=== PATIENT | female | born 1990 | race Caucasian/White ===

== ENCOUNTER 2016-12-05 02:04 | Emergency (ER) | payer BC, OTHER ==
[~2016-12-05] VITALS: Ht 170.2 cm; Wt 62.4 kg
[2016-12-05 02:06] VITALS: TEMP 37.4; Ht 170.2 cm; Wt 62.4 kg
[2016-12-05] MEDS ORDERED: DEXAMETHASONE SOD INJ 4 MG/ML VIAL IV STA (02:19)
[2016-12-05] MEDS ORDERED: SODIUM CHLORIDE 0.9% 1000ML 1,000 ML IV STA (02:19)
[2016-12-05] MEDS ORDERED: KETOROLAC TROMETHAMINE 30 MG/ML VIAL IV STA (02:19)
[2016-12-05] MEDS ORDERED: AMPICILLIN/SULBACTAM SOD INJ 3,000 MG in SODIUM CHLORIDE 0.9% 100ML 100 ML IV ONE (02:30)
[2016-12-05] MEDS ORDERED: SERT1TAB71 PO (02:43)
[2016-12-05 02:49] LABS: HEMATOCRIT 38.3 % (37-47); MEAN CELL VOLUME 87.2 fL (80-100); MEAN CORPUSCULAR HEMOGLOBIN 29.2 pg (25-34); MEAN CORPUSCULAR HGB CONC 33.4 g/dl (32-36); PLATELET COUNT 214 K/uL (130-400); RED BLOOD COUNT 4.39 M/uL (4.2-5.4); WHITE BLOOD COUNT 12.33 K/uL (4.8-10.8)
[2016-12-05 03:05] LABS: BUN/CREATININE RATIO 8.2 (10-20); CALCIUM 8.8 mg/dl (8.5-10.1); CREATININE 0.7 mg/dl (0.60-1.20); POTASSIUM 3.7 mmol/L (3.5-5.1)
[2016-12-05 03:42] LABS: COMPLETE YES; LYMPH ABS # 2.81 K/uL (1.2-3.4); LYMPHOCYTE % 22.8 %; NEUTROPHILS % 31.6 %; VARIANT LYM ABS # 5.08 K/uL; VARIANT LYMPHOCYTE % 41.2 %
--- NOTE | 2016-12-05 03:47 | EMERGENCY ROOM VISIT NOTE ---
History First contact with patient: 02:13 Chief Complaint: SORETHROAT Stated Complaint: THROAT SWOLLEN,PUSS ON TONSILS,FEVER,CONGESTION History of Present Illness The patient is a 26 year old female who presents to the Emergency Room with complaints of sore throat and difficulty swallowing. The patient states that she has had a sore throat for the past 5 days. She was initially seen by urgent care 3 days ago and told that her symptoms are likely viral. She was then seen again and prescribed amoxicillin and a steroid. She reports pain and swelling in the throat as well as swollen glands in the throat. She has had a fever. She rates her current discomfort an 8/10. She states that her throat feels very swollen and it is making it difficult to breathe and swallow. She denies any cough, neck stiffness, headache, chest pain or shortness of breath. Review of Systems A complete 10 point review of systems was reviewed with the patient with pertinent positives and negatives as per history of present illness. All else were negative. Social History Smoking Status: Never Smoker Current/Historical Medications Scheduled Sertraline Hcl (Zoloft), 25 MG PO DAILY Physical Exam Vital Signs Date Time Temp Pulse Resp B/P (MAP) Pulse Ox O2 Delivery O2 Flow Rate FiO2 12/05/16 03:59 95 18 105/55 97 12/05/16 02:29 Room Air 96 12/05/16 02:06 37.4 112 18 118/68 96 Room Air Physical Exam VITALS: Vitals are noted on the nurse's note and reviewed by myself. Vital signs stable. GENERAL: This is a 26-year-old female, in no acute distress, nondiaphoretic, well-developed well-nourished. SKIN: The skin was without rashes. EARS: External auditory canals clear, tympanic membranes pearly zaldivar without erythema or effusion bilaterally. EYES: Pupils equal round and reactive to light and accommodation. Conjunctivae without injection, sclerae without icterus. NOSE: Patent, turbinates without inflammation or discharge. MOUTH: Mucous membranes moist. Tonsils are significantly enlarged bilaterally with exudate present. Airway is patent. No evidence of peritonsillar abscess. NECK: Supple without nuchal rigidity. There is tender anterior cervical lymphadenopathy. No meningismus. HEART: Regular rate and rhythm without murmurs gallops or rubs. LUNGS: Clear to auscultation bilaterally without wheezes, rales or rhonchi. NEURO: Patient was alert and oriented to person place and time. Medical Decision & Procedures Laboratory Results 12/05/16 02:35 Red Blood Count 4.39, Mean Corpuscular Volume 87.2, Mean Corpuscular Hemoglobin 29.2, Mean Corpuscular Hemoglobin Concent 33.4, Mean Platelet Volume 9.0 12/05/16 02:35 Test 12/05/16 02:35 White Blood Count 12.33 K/uL (4.8-10.8) Red Blood Count 4.39 M/uL (4.2-5.4) Hemoglobin 12.8 g/dL (12.0-16.0) Hematocrit 38.3 % (37-47) Mean Corpuscular Volume 87.2 fL (80-100) Mean Corpuscular Hemoglobin 29.2 pg (25-34) Mean Corpuscular Hemoglobin Concent 33.4 g/dl (32-36) Platelet Count 214 K/uL (130-400) Mean Platelet Volume 9.0 fL (7.4-10.4) RDW Standard Deviation 43.7 fL (36.4-46.3) RDW Coefficient of Variation 13.7 % (11.5-14.5) Neutrophils % (Manual) 31.6 % Lymphocytes % (Manual) 22.8 % Variant Lymphocytes % (manual) 41.2 % Monocytes % (Manual) 4.4 % Neutrophils # (Manual) 3.90 K/uL (1.4-6.5) Total Absolute Neutrophils 3.90 K/uL (1.4-6.5) Lymphocytes # (Manual) 2.81 K/uL (1.2-3.4) Absolute Variant Lymphocytes 5.08 K/uL Total Absolute Lymphocytes 7.89 K/uL (1.2-3.4) Monocytes # (Manual) 0.54 K/uL (0.11-0.59) Red Blood Cell Morphology Unremarkable Anion Gap 3.0 mmol/L (3-11) Est Creatinine Clear Calc Drug Dose 116.4 ml/min Estimated GFR () 136.7 Estimated GFR (Non- 117.9 BUN/Creatinine Ratio 8.2 (10-20) Calcium Level 8.8 mg/dl (8.5-10.1) Monoscreen POS (NEG) Medications Administered Medications (Trade) Dose Ordered Sig/Kuldip Route Start Time Stop Time Status Last Admin Dose Admin Sodium Chloride 1,000 ml @ 999 mls/hr Q1H1M STAT IV 12/05/16 02:19 12/05/16 03:19 DC 12/05/16 02:53 999 MLS/HR Ampicillin Sodium/ Sulbactam Sodium 3000 mg/Sodium Chloride 108 ml @ 200 mls/hr ONE ONCE IV 12/05/16 02:30 12/05/16 03:02 DC 12/05/16 02:53 200 MLS/HR Dexamethasone Sodium Phosphate (Decadron Inj) 10 mg NOW STAT IV 12/05/16 02:19 12/05/16 02:21 DC 12/05/16 02:52 10 MG Ketorolac Tromethamine (Toradol Inj) 30 mg NOW STAT IV 12/05/16 02:19 12/05/16 02:21 DC 12/05/16 02:53 30 MG ED Course The patient was evaluated as above. Labs were drawn and IV access was obtained. Patient was medicated with 1 L normal saline solution, 10 mg Decadron, 30 mg Toradol and 3 g Unasyn. Patient was reevaluated and reported she was feeling better. She will be discharged. Discharge instructions were reviewed with the patient. The patient verbalized understanding of my assessment and treatment plan and was discharged home in good condition. Medical Decision Differential diagnosis includes strep pharyngitis, infectious mononucleosis, retropharyngeal abscess, epiglottitis, peritonsillar abscess, among others. The patient is a 26-year-old female who presents today complaining of sore throat and difficulty swallowing due to swelling of her tonsils. Labs revealed mild leukocytosis. Rapid strep was negative, however patient has fever, high density and anterior lymphadenopathy and I do feel she likely has a strep infection and should continue amoxicillin. Her Monospot was also positive and she was informed of this. She will continue her medications at home. She did have some improvement after IV steroids and antibiotics. I suspect that the patient will have some improvement throughout the day, as she has currently been on antibiotics for just under 48 hours. She was instructed to return here if she has any worsening of her current condition. Based on the patient's presentation and work up, I feel the patient is stable for outpatient treatment. The patient was educated to return to the emergency department for any worsening of their current condition or new/concerning symptoms. She will follow up with her PCP as needed. Medication Reconcilliation Current Medication List: was personally reviewed by me Blood Pressure Screening Patient's blood pressure: Normal blood pressure Impression Primary Impression: Acute pharyngitis Additional Impression: Infectious mononucleosis Departure Information Dispostion Home / Self-Care Condition GOOD Referrals No Doctor, Assigned (PCP) Patient Instructions ED Mononucleosis, My [facility] Additional Instructions You were seen in the emergency department for your sore throat. Continue the amoxicillin and prednisone as prescribed. For pain and fever control, you can use the following [id number]-uaa-[id number] medicines (if >12 yo): - Regular strength (325mg/tab) Tylenol (acetaminophen) 2 tabs every 4-6 hours as needed. Do not exceed 12 tablets in a 24 hour period. Avoid taking more than 4 grams (4000 mg) of Tylenol per day. This includes any other sources of acetaminophen you may take on a regular basis. - Regular strength (200 mg/tab) Advil (ibuprofen) 3-4 tabs every 6 hours as needed. Do not exceed a dose of 3200 mg per day. - For best results, alternate dosing of Tylenol and Advil. In addition to your prescribed medications, you can also use the following home remedies: - Warm salt-water gargles 3 times per day can soothe your throat and help to fight infection. - Warm tea with honey can soothe your throat. Return to the emergency department if your symptoms persist or worsen over the next 2-3 days despite treatment course outlined above. Return to the emergency department if you develop the following symptoms of: inability to swallow solids , liquids, or drool; excessive wheezing or inability to catch your breath; or intractable fever or pain. Follow up with your primary care provider in 2-3 days from today's emergency department visit. Problem Qualifiers Primary Impression: Acute pharyngitis
[2016-12-05 03:59] VITALS: BP 105/55; PULSE 95; O2SAT 97
== END 2016-12-05 04:00 | disposition home or self-care (01) ==
LOC: C.EDB 02:06
DX: J02.9 Acute pharyngitis, unspecified (principal); B27.90 Infectious mononucleosis, unspecified without complication

== ENCOUNTER → 2017-02-10 | Outpatient (CLI) | payer BC ==
[~2017-02-10] MED LIST: SERT1TAB71 PO
--- NOTE | 2017-02-10 08:11 | DIAGNOSTIC IMAGING REPORT ---
CT OF THE SINUSES WITHOUT CONTRAST FUSION PROTOCOL CLINICAL HISTORY: Recurrent acute and chronic sinusitis. COMPARISON STUDY: No previous studies for comparison. TECHNIQUE: Axial images of the sinuses were obtained without IV contrast according to Fusion protocol. Coronal reformats were viewed. FINDINGS: Visualized portions of the intracranial contents are unremarkable on this unenhanced exam. There is no fluid within the mastoid air cells. Orbits are unremarkable. A 1.6 cm hypodensity within the inferior right maxillary sinus is noted. The major drainage pathways are patent. There is mild mucosal thickening of the ethmoid sinuses. No bony destruction is present. Cribriform plate is intact. There is minimal S-shaped deviation of the nasal septum. Orbits are unremarkable. IMPRESSION: 1. 1.6 cm hypodensity within the right maxillary sinus which likely reflects a mucous retention cyst. A polyp could appear similar. 2. Minimal mucosal thickening of the ethmoid sinuses. No CT evidence of acute sinusitis. 3. Patent major drainage pathways. Electronically signed by: Warren Lloyd M.D. 02/10/2017 8:10 AM Dictated Date/Time: 02/10/2017 7:55 AM
== END | disposition home or self-care (01) ==
LOC: C.CTS 07:33
DX: J32.9 Chronic sinusitis, unspecified (principal); J34.9 Unspecified disorder of nose and nasal sinuses

== ENCOUNTER → 2017-03-09 | Day surgery (SDC) | payer BC ==
[2017-03-04 08:30] VITALS: Ht 170.2 cm; Wt 63.6 kg
[~2017-03-09] VITALS: Ht 170.2 cm; Wt 63.6 kg
[~2017-03-09] MED LIST changes: +ASCO10003 PO; +ATROPINE SULFATE 0.1 MG/ML 5ML SYR IV PRN; +BACITRACIN/POLYMYXIN B OINT 15 GM TUBE EXT ONE; +DEXAMETHASONE SOD INJ 4 MG/ML VIAL ONE; +EpHEDrine SULFATE INJ 50 MG/ML AMP IV PRN; +FENTANYL CITRATE INJ 50 MCG/1 ML 2 ML VIAL IV PRN; +FENTANYL CITRATE INJ 50 MCG/1 ML 2 ML VIAL ONE; +HYDROCODONE/APAP 2.5MG/108MG ELIX 5 ML UDP PO PRN; +LACTATED RINGER'S 1000ML 1,000 ML IV SCH; +LIDOCAINE 2% JELLY 5 ML TUBE EXT ONE; +LIDOCAINE HCL 2% 2 ML VIAL (20MG/ML) ONE; +MIDAZOLAM HCL 1 MG/ML 2ML VIAL ONE; +MISCCAP80 PO; +MULT-506 PO; +ONDANSETRON INJ 2 MG/ML 2 ML VIAL IV PRN; +ONDANSETRON INJ 2 MG/ML 2 ML VIAL ONE; +OXYMETAZOLINE HCL 0.05% NA SPR 15 ML BTL ONE; +PROPOFOL IV EMULSION 10 MG/ML 20 ML VIAL IV ONE; +SCOPOLAMINE 1.5 MG TDSY TD ONE; -SERT1TAB71 PO; +SPIR1TAB PO
--- NOTE | 2017-03-09 06:47 | History & Physical Bridge - SC ---
H&P Re-Evaluation Bridge Note: I have examined the patient, reviewed the History & Physical and in the interval since the performance of the History & Physical I have noted the following changes of clinical significance: No changes noted
--- NOTE | 2017-03-09 09:03 | [facility] Operative Report ---
Operative Report Operative Date Mar 09, 2017. Pre-Operative Diagnosis Acute Recurrent Tonsillitis; Tonsillar Hypertrophy; Adenoid Hypertrophy Post-Operative Diagnosis Same Procedure(s) Performed Tonsillectomy And Adenoidectomy Surgeon Dr. Redman Welding Tester Surgeon(s) None Estimated Blood Loss 5ML Findings 1. 3+ T&A Specimens A. Right Tonsil B. Left Tonsil I attest to the content of the Intraoperative Record and any orders documented therein. Any exceptions are noted below.
--- NOTE | 2017-03-09 09:05 | Discharge Instructions ---
Discharge Instructions Date of Service Mar 09, 2017. Admission Reason for Admission: Acute Rec Tonsillitis, Hypertrophy Tonsils, Adenoi Discharge Discharge Diagnosis / Problem: SAME Discharge Goals Goal(s): Therapeutic intervention Activity Recommendations Activity Limitations: as noted below LIGHT ACTIVITY FOR 2 WEEKS; NO DRIVING WHILE ON LORTAB . Current Hospital Diet Patient's current hospital diet: Full Liquid Diet Discharge Diet Recommended Diet: Full Liquid Diet Diet Texture: Mechanical Soft (ground) Procedures Procedures Performed: Tonsillectomy And Adenoidectomy Pending Studies Studies pending at discharge: no Medical Emergencies . Who to Call and When: Medical Emergencies: If at any time you feel your situation is an emergency, please call 911 immediately. . Non-Emergent Contact Non-Emergency issues call your: Surgeon . . "Provider Documentation" section prepared by Catracho Redman. . VTE Core Measure Inpt VTE Proph given/why not?: SCD's
--- NOTE | 2017-03-09 09:23 | OPERATIVE REPORT ---
DATE OF OPERATION: 03/09/2017 PREOPERATIVE DIAGNOSES: 1. Recurrent acute and chronic tonsillitis. 2. Tonsil and adenoid hypertrophy. POSTOPERATIVE DIAGNOSES: 1. Recurrent acute and chronic tonsillitis. 2. Tonsil and adenoid hypertrophy. PROCEDURES: Tonsillectomy and adenoidectomy. SURGEON: Catracho Redman MD ANESTHESIA: General endotracheal. ESTIMATED BLOOD LOSS: 5 mL FINDINGS: 1. Normal palate. 2. 3+ adenoids. 3. 3+ tonsils. SPECIMENS: Right and left tonsil sent separately for permanent pathological assessment. COMPLICATIONS: None. INDICATIONS FOR THE PROCEDURE: The patient is a 27-year-old female with the above-mentioned history who presents for the above-mentioned procedure on an outpatient elective basis. DESCRIPTION OF PROCEDURE: After informed consent had been obtained from the patient, the patient was wheeled to the operating room and placed on the operating table in the supine position. Monitors placed. After induction of general endotracheal anesthesia, the table was turned 90 degrees. The patient's head and neck were gently extended. Antibiotic ointment was applied to the lips and a mouth gag was carefully inserted, opened, and stabilized on a roll of towels. The palate was inspected and this was found to be normal. A catheter was then inserted into the right nasal cavity and this was used to elevate the soft palate and uvula. A laryngeal mirror was used to inspect the nasopharynx and the intraoperative findings were 3+ adenoid tissue. This was removed using suction Bovie electrocautery while achieving hemostasis simultaneously. An Allis clamp was then used to grasp the right tonsil on the superior pole and Bovie electrocautery was used to remove the tonsil in the capsular plane with care to preserve the underlying mucosa and musculature of the anterior and posterior tonsillar pillars. The left tonsil was then removed in a similar fashion. Intraoperative findings were 3+ cryptic tonsils bilaterally. These were sent separately for permanent pathological assessment. The mouth gag was then released for 1 minute. This was reopened and hemostasis was confirmed. An orogastric tube was placed and the stomach was suctioned free of air and the stomach contents. This marked the end of the case. The patient tolerated the procedure well. There were no apparent complications. The patient was extubated and transferred to the recovery room in stable condition. I attest to the content of the Intraoperative Record and any orders documented therein. Any exception s are noted below.
[2017-03-09 09:52] VITALS: TEMP 36.4
--- NOTE | 2017-03-09 10:20 | Anesthesia Progress Nt - [facility] ---
Anesthesia Post Op Note Date & Time Mar 09, 2017 at 10:20 Vital Signs Pain Intensity: 4 Vital Signs Past 12 Hours Date Time Temp Pulse Resp B/P (MAP) Pulse Ox O2 Delivery O2 Flow Rate FiO2 03/09/17 09:52 36.4 74 16 109/71 (84) 100 Room Air 03/09/17 09:48 36.7 71 16 114/71 99 Room Air 03/09/17 09:44 66 9 03/09/17 09:44 66 9 99 03/09/17 09:44 66 9 99 03/09/17 09:44 66 9 03/09/17 09:43 70 13 03/09/17 09:43 69 13 99 03/09/17 09:40 120/70 03/09/17 09:38 81 16 99 03/09/17 09:38 81 16 03/09/17 09:36 119/74 03/09/17 09:33 83 15 03/09/17 09:33 83 15 99 03/09/17 09:30 134/76 03/09/17 09:28 81 18 100 03/09/17 09:28 84 18 03/09/17 09:25 117/73 03/09/17 09:23 71 9 100 03/09/17 09:23 73 9 03/09/17 09:20 115/64 03/09/17 09:18 81 6 100 03/09/17 09:18 80 6 03/09/17 09:17 83 6 100 03/09/17 09:17 83 6 03/09/17 09:15 121/65 03/09/17 09:12 36.9 97 12 128/68 (80) 98 Humidified Oxygen Mask 03/09/17 09:12 96 03/09/17 09:12 96 128/68 98 03/09/17 06:52 36.8 84 16 113/73 (86) 99 Room Air Notes Mental Status: alert / awake / arousable, participated in evaluation Pt Amnestic to Procedure: Yes Nausea / Vomiting: adequately controlled Pain: adequately controlled Airway Patency, RR, SpO2: stable & adequate BP & HR: stable & adequate Hydration State: stable & adequate Anesthetic Complications: no major complications apparent
[2017-03-09 10:27] VITALS: BP 119/72; PULSE 62; O2SAT 100
== END | disposition home or self-care (01) ==
LOC: X.SURG 06:41
DX: J35.03 Chronic tonsillitis and adenoiditis (principal); J30.9 Allergic rhinitis, unspecified; Z79.899 Other long term (current) drug therapy

== ENCOUNTER → 2017-05-26 | Outpatient (CLI) | payer OTHER ==
[~2017-05-26] MED LIST changes: -ATROPINE SULFATE 0.1 MG/ML 5ML SYR IV PRN; -BACITRACIN/POLYMYXIN B OINT 15 GM TUBE EXT ONE; -DEXAMETHASONE SOD INJ 4 MG/ML VIAL ONE; -EpHEDrine SULFATE INJ 50 MG/ML AMP IV PRN; -FENTANYL CITRATE INJ 50 MCG/1 ML 2 ML VIAL IV PRN; -FENTANYL CITRATE INJ 50 MCG/1 ML 2 ML VIAL ONE; -HYDROCODONE/APAP 2.5MG/108MG ELIX 5 ML UDP PO PRN; -LACTATED RINGER'S 1000ML 1,000 ML IV SCH; -LIDOCAINE 2% JELLY 5 ML TUBE EXT ONE; -LIDOCAINE HCL 2% 2 ML VIAL (20MG/ML) ONE; -MIDAZOLAM HCL 1 MG/ML 2ML VIAL ONE; -ONDANSETRON INJ 2 MG/ML 2 ML VIAL IV PRN; -ONDANSETRON INJ 2 MG/ML 2 ML VIAL ONE; -OXYMETAZOLINE HCL 0.05% NA SPR 15 ML BTL ONE; -PROPOFOL IV EMULSION 10 MG/ML 20 ML VIAL IV ONE; -SCOPOLAMINE 1.5 MG TDSY TD ONE
== END | disposition home or self-care (01) ==
LOC: C.PAPS 13:42
PROVIDERS: ATTEND Physician Assistant
DX: Z12.4 Encounter for screening for malignant neoplasm of cervix (principal); R87.610 Atypical squamous cells of undetermined significance on cytologic smear of cervix (ASC-US); Z11.51 Encounter for screening for human papillomavirus (HPV)

== ENCOUNTER → 2017-05-26 | Outpatient (CLI) | payer OTHER | END | disposition home or self-care (01) | LOC: C.LABSPEC 14:17 | PROVIDERS: ATTEND Physician Assistant | DX: Z11.3 Encounter for screening for infections with a predominantly sexual mode of transmission (principal); Z11.8 Encounter for screening for other infectious and parasitic diseases ==

== ENCOUNTER → 2017-07-06 | Outpatient (CLI) | payer OTHER | END | disposition home or self-care (01) | LOC: C.PAPS 10:42 → C.LABSPEC 10:42 | PROVIDERS: ATTEND Physician Assistant | DX: N76.0 Acute vaginitis (principal) ==